=== PATIENT | female | born 1990 | race Caucasian/White ===

== ENCOUNTER 2016-09-12 19:56 | Emergency (ER) | payer BC ==
[2016-09-12 20:05] VITALS: RESP 16
[2016-09-12] MEDS ORDERED: ONDANSETRON DISINTEGRATING 4 MG TAB PO ONE (20:08)
[2016-09-12] MEDS ORDERED: NS 1,000 ML IV ONE (20:08)
--- NOTE | 2016-09-12 20:18 | UCPHY ---
H & P Patient Type: New Chief Complaint Nursing Narrative: C/o vomiting after drinking 1 bottle of vodka yesterday. Last drink yesterday. Patient states she has been drinking every night since patient has been 21. Time Seen by Provider: 09/12/16 20:10 HPI/ROS: CHIEF COMPLAINT: Nausea vomiting HISTORY OF PRESENT ILLNESS: The patient is a 26-year-old female who comes to the Urgent Care with her mom complaining of nausea vomiting and dehydration. She states that she drank too much vodka last night and that she is having a bad hangover. She does not think that she is withdrawing. She does however drink large amounts daily. she has never withdrawn before. She denies being in any pain. REVIEW OF SYSTEMS: Constitutional: denies: chills, fever, recent illness, recent injury EENTM: denies: blurred vision, double vision, nose congestion Respiratory: denies: cough, shortness of breath Cardiac: denies: chest pain, irregular heart rate, lightheadedness, palpitations Gastrointestinal/Abdominal: See HPI Genitourinary: denies: dysuria, frequency, hematuria, pain Musculoskeletal: denies: joint pain, muscle pain Skin: denies: lesions, rash, jaundice, bruising Neurological: denies: headache, numbness, paresthesia, tingling, dizziness, weakness Hematologic/Lymphatic: denies: blood clots, easy bleeding, easy bruising Immunologic/allergic: denies: HIV/AIDS, transplant EXAM: GENERAL: Well-appearing, well-nourished and in no acute distress. HEAD: Atraumatic, normocephalic. EYES: Pupils equal round and reactive to light, extraocular movements intact, sclera anicteric, conjunctiva are normal. ENT: TMs normal, nares patent, oropharynx clear without exudates. Moist mucous membranes. NECK: Normal range of motion, supple without lymphadenopathy or JVD. LUNGS: Breath sounds clear to auscultation bilaterally and equal. No wheezes rales or rhonchi. HEART: Regular rate and rhythm without murmurs, rubs or gallops. ABDOMEN: Soft, nontender, normoactive bowel sounds. No guarding, no rebound. No masses appreciated. BACK: No CVA tenderness, no spinal tenderness, step-offs or deformities EXTREMITIES: Normal range of motion, no pitting or edema. No clubbing or cyanosis. NEUROLOGICAL: Cranial nerves II through XII grossly intact. Normal speech, normal gait. 5/5 strength, normal movement in all extremities, normal sensation PSYCH: Anxious, tearful SKIN: Warm, dry, normal turgor, no visible rashes or lesions. Source: Patient Exam Limitations: No limitations - Personal History LMP (Females 10-55): IUD In Place Current Tetanus Diphtheria and Acellular Pertussis (TDAP): Yes Tetanus Vaccine Date: within 10 years - Medical/Surgical History Hx Asthma: No Hx Chronic Respiratory Disease: No Hx Diabetes: No Hx Cardiac Disease: No Hx Renal Disease: No Hx Cirrhosis: No Hx Alcoholism: Yes Hx HIV/AIDS: No Hx Splenectomy or Spleen Trauma: No Other PMH: tonsillectomy, ETOH - Family History Significant Family History: No pertinent family hx - Social History Smoking Status: Never smoked Alcohol Use: Heavy Drug Use: Marijuana Constitutional: Initial Vital Signs Temperature (C) 36.8 C 09/12/16 20:00 Heart Rate 102 H 09/12/16 20:00 Respiratory Rate 16 09/12/16 20:00 Blood Pressure 144/99 H 09/12/16 20:00 O2 Sat (%) 94 09/12/16 20:00 O2 Delivery Mode Room Air Allergies/Adverse Reactions: No Known Allergies Allergy (Verified 09/12/16 20:04) Home Medications: Medication Instructions Recorded Miscellaneous Medical Supply [NO 1 ea [facility] [place] [facility] 12/19/12 HOME MEDS] Medical Decision Making ED Course/Re-evaluation: 9:35 p.m. the patient is very eager to leave as her mom. They do not feel that they were treated here despite the IV fluids, Zofran and Ativan. The patient is feeling much better but continues to occasionally hyperventilate and has hand cramping. She is eager to leave. She is tolerating p.o. fluids. Hands improve when she stops hyperventilating. I discussed with patient and mom multiple times about the importance of getting into an alcohol treatment program. They refuse transfer to the alcohol recovery Center. Differential Diagnosis: Partial list of the Differential diagnosis considered include but were not limited to; in alcohol withdrawal, hangover, intoxication, dehydration and although unlikely based on the history and physical exam, I also considered gastritis, food poisoning, peptic ulcer disease neuropathy. I discussed these differential diagnoses and the plan with the patient as well as the usual and expected course. The patient understands that the diagnosis is provisional and that in medicine we are not always correct and that further workup is often warranted. Usual and customary warnings were given. All of the patient's questions were answered. The patient was instructed to return to the emergency department should the symptoms at all worsen or return, otherwise to followup with the physician as we discussed. - Data Points Medications Given: Discontinued Medications Sodium Chloride (Ns) 1,000 mls @ 0 mls/hr IV EDNOW ONE PRN Reason: As Directed Stop: 09/12/16 20:09 Last Admin: 09/12/16 20:20 Dose: 1,000 mls Lorazepam (Ativan Injection) 1 mg IVP EDNOW ONE Stop: 09/12/16 20:46 Last Admin: 09/12/16 20:52 Dose: 1 mg Ondansetron HCl (Zofran Odt) 4 mg PO EDNOW ONE Stop: 09/12/16 20:09 Last Admin: 09/12/16 20:11 Dose: 4 mg Departure - Departure Disposition: Home, Routine, Self-Care Clinical Impression: Alcoholism /alcohol abuse, Anxiety Condition: Fair Instructions: Alcohol Use Disorder (ED), Anxiety (ED) Referrals: NONE *PRIMARY CARE P,. [Primary Care Provider] - As per Instructions - PQRS PQRS Measurement: Not applicable
[2016-09-12] MEDS ORDERED: LORazepam 2 MG/ML INJ IVP ONE (20:45)
[2016-09-12] MEDS ORDERED: LORAZEPAM 1 MG PREPACK#4 BTL TAKEHOME ONE (21:38)
[2016-09-12 21:43] VITALS: BP 132/81; PULSE 96; TEMP 97.9; O2SAT 96
== END 2016-09-12 21:52 | disposition home or self-care (01) ==
LOC: CED 19:56
DX: F10.20 Alcohol dependence, uncomplicated (principal); F41.9 Anxiety disorder, unspecified
CPT/HCPCS: 96361-PO; 96374-PO; G0463-PO